=== PATIENT | female | born 1985 | race Caucasian/White ===

== ENCOUNTER 2016-09-11 14:16 | Day surgery (SDC) | payer MEDICAID ==
[~2016-09-11] VITALS: Ht 152.4 cm; Wt 75.0 kg
[2016-09-11] VITALS (14 sets, daily range): BP systolic 105–162; BP diastolic 53–67; PULSE 68–82; RESP 14–18; Ht 152.4 cm; Wt 75.0 kg
[2016-09-11 15:33] LABS: ADD SCAN DIFF NO
[2016-09-11 15:37] LABS: BASOPHILS % 0.5 % (0.0-2.0); EOSINOPHILS # 0.2 10^3/ul (0.0-0.5); EOSINOPHILS % 2.4 % (0.0-7.0); HEMATOCRIT 37.2 % (37.0-47.0); HEMOGLOBIN 13.2 g/dl (12.0-16.0); LYMPHOCYTES # 2.8 10^3/ul (0.8-2.9); LYMPHOCYTES % 35.3 % (15.0-51.0); MEAN CORPUSCULAR HEMOGLOBIN 30.9 pg (29.0-33.0); MEAN CORPUSCULAR HGB CONC 35.5 g/dl (32.0-37.0); MEAN CORPUSCULAR VOLUME 87.1 fl (82.0-101.0); MEAN PLATELET VOLUME 11.4 fl (7.4-10.4); MONOCYTE # 0.5 10^3/ul (0.3-0.9); MONOCYTES % 6.6 % (0.0-11.0); NEUTROPHIL # 4.4 10^3/ul (1.6-7.5); NEUTROPHILS % 54.9 % (39.0-77.0); PLATELET COUNT 225 10^3/UL (140-415); RED BLOOD COUNT 4.27 10^6/ul (4.20-5.40); RED CELL DISTRIBUTION WIDTH 12.2 % (11.5-14.5)
--- NOTE | 2016-09-11 17:35 | HP ---
Date/Time of Note Date/Time of Note DATE: 09/11/16 TIME: 17:31 Assessment/Plan VTE Prophylaxis VTE Prophylaxis Intervention: ambulation Lines/Catheters IV Catheter Type (from Nrs): Peripheral IV Assessment/Plan Assessment/Plan multiparity with desire for sterilization will proceed with laparoscopic or laparotomy BTL HPI/ROS Admit Date/Time Admit Date/Time Hx of Present Illness 30 y/o female P5 LMP: 09/06/2016 here for elective bilateral tubal ligation ROS NONE Constitutional: improved, no complaints Eyes: no complaints ENT: no complaints Respiratory: no complaints Cardiovascular: no complaints Gastrointestinal: no complaints Genitourinary: no complaints Musculoskeletal: no complaints Skin: no complaints Neurologic: no complaints Endocrine: no complaints Lymphatic: no complaints Psychological: nl mood/affect, no complaints Immunologic: no complaints PMH/Family/Social Past Medical History Medical History: no pertinent history Past Surgical History Past Surgical Hx: no surgical history Family History Significant Family History: no pertinent family hx Social History Alcohol Use: none Smoking Status: Never smoker Drug Use: none Exam/Review of Systems Vital Signs Vitals Vital Signs Date Time Temp Pulse Resp B/P Pulse Ox O2 Delivery O2 Flow Rate FiO2 09/11/16 15:32 97.3 82 18 162/59 99 Room Air Exam Constitutional: alert, oriented, well developed Psych: nl mood/affect, no complaints Head: atraumatic, normocephalic Eyes: EOMI, PERRL, nl conjunctiva, nl lids, nl sclera ENMT: nl external ears & nose, nl lips & teeth, nl nasal mucosa & septum Neck: non-tender, supple Respiratory: clear to auscultation, normal air movement Cardiovascular: nl pulses, regular rate and rhythm Gastrointestinal: nl liver, spleen, non-tender, soft Musculoskeletal: nl extremities to inspection Extremities: normal pulses Neurological: BUSINESS PERFORMANCE SPECIALIST II-XII intact, nl mental status, nl speech, nl strength Skin: nl turgor, No rash or lesions Lymph: nl lymph nodes Labs Result Diagram: 09/11/16 1525 JORGE LUIS CADENA MD Sep 11, 2016 17:34
[2016-09-11] MEDS ORDERED: ROCURONIUM 50 MG INJ ONE (17:42)
[2016-09-11] MEDS ORDERED: GLYCOPYRROLATE 0.4 MG INJ ONE ×2 (17:42→18:39)
[2016-09-11] MEDS ORDERED: PROPOFOL 20 ML ONE (17:42)
[2016-09-11] MEDS ORDERED: NEOSTIGMINE 3 MG/3 ML SYRINGE ONE ×2 (17:42→18:39)
[2016-09-11] MEDS ORDERED: LIDOCAINE 100 MG SYRINGE ONE (17:42)
[2016-09-11] MEDS ORDERED: DEXAMETHASONE 4 MG/ML 1 ML INJ ONE (17:43)
[2016-09-11] MEDS ORDERED: ONDANSETRON 4 MG INJ ONE (17:43)
[2016-09-11] MEDS ORDERED: FENTAnyl 50 MCG/ML VIAL ONE ×3 (17:43→18:44)
[2016-09-11] MEDS ORDERED: MIDAZOLAM 1 MG/ML 2 ML INJ ONE (17:43)
[2016-09-11] MEDS ORDERED: BUPIVACAINE 0.25%/EPI (SDV) 30 ML INJ ONE (18:17)
[2016-09-11] MEDS ORDERED: HYDROmorphONE (0.2 MG/ML) 10ML SYG IV PRN ×3 (18:30)
[2016-09-11] MEDS ORDERED: DIPHENHYDRAMINE 50 MG INJ IV PRN (18:30)
[2016-09-11] MEDS ORDERED: EPHEDrine SULFATE 50 MG/5 ML SYG IV PRN (18:30)
[2016-09-11] MEDS ORDERED: FENTAnyl 50 MCG/ML VIAL IV PRN ×3 (18:30)
[2016-09-11] MEDS ORDERED: MEPERIDINE 25 MG INJ IV PRN (18:30)
[2016-09-11] MEDS ORDERED: hydrALAzine 20 MG INJ IV PRN (18:30)
[2016-09-11] MEDS ORDERED: ONDANSETRON 4 MG INJ IV PRN (18:30)
[2016-09-11] MEDS ORDERED: TRIMETHOBENZAMIDE 100 MG/ML VIAL IM PRN (18:30)
[2016-09-11] MEDS ORDERED: LABETALOL HCL 20MG INJ IV PRN (18:30)
[2016-09-11] MEDS ORDERED: MIDAZOLAM 1 MG/ML 2 ML INJ IV PRN (18:30)
[2016-09-11] MEDS ORDERED: KETOROLAC 30 MG INJ ONE ×2 (18:39→19:14)
[2016-09-11] MEDS ORDERED: LACTATED RINGER'S 1,000 ML IV SCH (19:02)
[2016-09-11] MEDS ORDERED: KETOROLAC 60 MG INJ IM STA (19:02)
--- NOTE | 2016-09-11 19:02 | OPR ---
Operative Report Planned Procedure Procedure date Sep 11, 2016 Procedure(s) Laparoscopic bilateral tubal fulguration Performed by: JORGE LUIS CADENA MD Anesthesiologist: Attila Ramirez M.D. Pre-procedure diagnosis multiparity desired sterilization Anesthesia Type: general Procedure Description The patient was placed on the OR table in the supine position. General anesthesia was induced. The patient was turned into lithotomy position for vaginal and laparoscopic procedure specifically. Perineal, vaginal, and abdominal area were then prepped with Betadine and draped for a usual laparoscopic procedure and a vaginal procedure. A Rivas catheter was then inserted into urinary bladder under aseptic condition in operating room and under satisfactory anesthesia, a small speculum was inserted into vagina. Anterior lip of the cervix was secured with a tenaculum. Cervix was brought down to operative field. It was progressively dilated to #6 Hegar. A HUMI elevator was inserted into cervical canal and afterwards uterine cavity. After insufflation of the tube all the other instruments were removed from vaginal cavity. After changing gloves, turning to abdominal side, a small incision was placed just below belly button 0.5 cm in length. A 0.5 cm trocar was introduced inside the incision. The trocar was blunt and pointing toward the uterine dome. The trocar was easily inserted inside the abdominal. A laparoscope was then inserted into the abdominal cavity, making sure the correct cavity was entered. Intra-abdominal cavity was insufflated with CO2. Under direct visualization a small incision was made a 0.5 cm in length about 2 to 3 fingerbreadths above and parallel to the symphysis pubis. A 0.5 cm trocar was then introduced inside the incision. Under direct visualization the second probe was also inserted into abdominal cavity easily. The uterus and fallopian tubes were easily identified. Right fallopian tube was approached first and at least 5 cm of the tube was adequately fulgurated, making sure no live tissue was left in between. The same procedure was done on the left side. Serious care was taken to avoid bowel, bladder, or other intra-abdominal organ injury. At this point, procedure was terminated. The trocar incision sites from inside the abdomen on either side were observed. No bleeding was observed. After removing the laparoscope, the abdomen was desufflated to its normal position. Afterwards, all of the trocar sleeves were removed. Abdominal incisions were closed using jayden. The HUMI was then discontinued. Also, Rivas was taken out. The patient was returned to supine position. Estimated blood loss was less than 5 mL. The patient tolerated the procedure very well and was transferred to postanesthesia recovery room in stable and good condition. Post-Procedure Post-procedure diagnosis S/P bilateral tubal fulguration Findings: normal R and L fallopian tubes Specimen removed: No Complications: None Pt Condition post procedure: stable Disposition: PACU Physician Certification I, the undersigned physician, hereby certify that I have discussed the procedure described in this consent form with this patient (or the patient's legal hotel services sales representative), including: * The risk and benefits of the procedure; * Any adverse reactions that may reasonably be expected to occur; * Any alternative efficacious methods of treatment which may be medically viable ; * The potential problems that may occur during recuperation; * Potential for blood transfusion and associated risks/benefits; and * Any research or economic interest I may have regarding this treatment. I further certify that the patient/legally responsible person was encouraged to ask question and that all questions were answered. JORGE LUIS CADENA MD Sep 11, 2016 19:02
[2016-09-11] MEDS ORDERED: KETOROLAC 30 MG INJ IM STA (19:14)
[2016-09-11] MEDS ORDERED: BUTORPHANOL 2 MG INJ IM ONE (19:30)
== END 2016-09-11 20:43 | disposition home or self-care (01) ==
LOC: SDS 14:16
PROVIDERS: ATTEND Obstetrics & Gynecology
DX: Z30.2 Encounter for sterilization (principal)
CPT/HCPCS: 58670; 85025; 86850; 86900; 86901; J0595; J1100; J1885; J2001; J2250; J2405; J2710; J3010; Z7512; Z7610; J2175